=== PATIENT | female | born 1970 | race Two or more races ===

== ENCOUNTER 2016-09-20 16:49 | Emergency (ER) | payer BC ==
[~2016-09-20] VITALS: Ht 165.1 cm; Wt 61.4 kg
[2016-09-20 17:00] VITALS: Ht 165.1 cm; Wt 61.4 kg
--- NOTE | 2016-09-20 17:31 | RADRPT ---
PROCEDURE: Ultrasound of the right lower extremity venous system. CLINICAL INDICATION: Right leg pain and swelling, deep venous thrombosis TECHNIQUE: Keys scale with and without compression, color doppler, spectral doppler of the venous system of the right lower extremity was performed. Venous augmentation maneuvers were utilized. COMPARISON: No prior studies are available for comparison. FINDINGS: Common femoral vein: Patent. Femoral vein: Patent. Popliteal vein: Patent. Calf veins: Patent. No soft tissue abnormalities are identified. IMPRESSION: No evidence of a deep vein thrombosis within the right lower extremity. RPTAT: AADD .David Miller MD, MD Date Time Electronically viewed and signed by .David Miller MD, on 09/20/2016 17:31 .B/
--- NOTE | 2016-09-24 04:03 | ERD ---
ER Documentation Chief Complaint Date/Time DATE: 09/24/16 TIME: 02:59 Chief Complaint RT LOWER LEG PAIN STARTING LAST NIGHT, NO SWELLING NOTED HPI 45 year old female with right calf pain x 2 days. She is concerned about a possible DVT because she is on OCP's. No SOB. She is otherwise healthy. No trauma ROS All systems reviewed and are negative except as per history of present illness. Allergies Allergies: Coded Allergies: No Known Allergy (Unverified , 09/20/16) PMhx/Soc Medical and Surgical Hx: pt denies Medical Hx, pt denies Surgical Hx Hx Alcohol Use: No Hx Substance Use: No Hx Tobacco Use: No Smoking Status: Never smoker Physical Exam Vitals Vital Signs Date Time Temp Pulse Resp B/P Pulse Ox O2 Delivery O2 Flow Rate FiO2 09/20/16 17:00 98.6 74 16 149/74 99 Physical Exam Const: [] No distress Skin: No petechiae or rashes Ext: No cyanosis, or edema. Mild tenderness to palpation mid calf. Procedures/MDM Likely muscle strain. No DVT currently. PCP follow up and return precautions. Patient does not want pain medication. Venous doppler Ultrasound interpretation: No DVT Departure Diagnosis: Primary Impression: Pain of left leg Condition: Stable DAMON TOUSSAINT DO September 24, 2016 04:03
== END 2016-09-20 17:47 | disposition home or self-care (01) ==
LOC: E/R 16:49
DX: M79.604 Pain in right leg (principal)
CPT/HCPCS: 93971

== ENCOUNTER 2018-01-22 09:13 | Emergency (ER) | END 2018-01-22 13:20 | disposition home or self-care (01) ==

== ENCOUNTER → 2018-02-05 | Outpatient (CLI) | END | disposition home or self-care (01) ==